=== PATIENT | male | born 1950 | race Caucasian/White ===

== ENCOUNTER 2021-02-22 12:21 | Emergency (ER) | payer MEDICARE ==
[~2021-02-22] VITALS: Ht 167.6 cm; Wt 70.8 kg
[~2021-02-22 12:21] MED LIST: AMLO-150 PO; ASPI-496 PO; ATOR80TA PO; LOSA25TA25 PO; MULT-464 PO; OMEG1CAP6 PO
[2021-02-22 12:23] VITALS: BP 175/86
[2021-02-22] MEDS ORDERED: TRANEXAMIC ACID 100 MG/ML, 10ML ONE (13:14)
[2021-02-22] MEDS ORDERED: OXYMETAZOLINE NASAL SPRAY 0.05%,30ML ONE (13:14)
[2021-02-22] MEDS ORDERED: TRANEXAMIC ACID 100 MG/ML, 10ML TP ONE (13:30)
[2021-02-22] MEDS ORDERED: OXYMETAZOLINE NASAL SPRAY 0.05%, 15ML NAS ONE (13:30)
[2021-02-22] MEDS ORDERED: SILVER NITRATE STICK TP ONE (13:59)
[2021-02-22] MEDS ORDERED: NEOSPORIN OINT. PKT 1 PACKET ONE (14:02)
== END 2021-02-22 15:23 | disposition home or self-care (01) ==
LOC: ED 12:53
DX: R04.0 Epistaxis (principal); I10 Essential (primary) hypertension; E78.00 Pure hypercholesterolemia, unspecified; Z98.61 Coronary angioplasty status
CPT/HCPCS: 30901; 99284